=== PATIENT | female | born 1985 | race Hispanic/Latino ===

== ENCOUNTER 2018-02-22 14:58 | Emergency (ER) | payer OTHER ==
[~2018-02-22] VITALS: Ht 157.5 cm; Wt 52.0 kg
[2018-02-22 15:47] LABS: INFLUENZA B NONE DETECTED (NONE DETECT)
[2018-02-22] MEDS ORDERED: AMOXICILLIN875 MG PO (16:28)
[2018-02-22] MEDS ORDERED: GENTAK0.32 OD (16:28)
[2018-02-22] MEDS ORDERED: TESSALON PERLE100 MG PO (16:28)
[2018-02-22 16:33] VITALS: BP 128/69
== END 2018-02-22 16:35 | disposition home or self-care (01) ==
LOC: ED 14:58
DX: J02.9 Acute pharyngitis, unspecified (principal); R50.9 Fever, unspecified; R05 Cough; R51 Headache; H10.31 Unspecified acute conjunctivitis, right eye; R21 Rash and other nonspecific skin eruption; R09.81 Nasal congestion

== ENCOUNTER 2018-05-19 14:53 | Outpatient (REF) | payer OTHER ==
[~2018-05-19 14:53] MED LIST: AMOXICILLIN875 MG PO; GENTAK0.32 OD; TESSALON PERLE100 MG PO
== END 2018-05-19 15:26 | disposition home or self-care (01) ==
LOC: INF 14:53
PROVIDERS: ATTEND Family Medicine
DX: Z45.2 Encounter for adjustment and management of vascular access device (principal)

== ENCOUNTER 2020-04-03 16:00 | Emergency (ER) | payer OTHER ==
[~2020-04-03] VITALS: Ht 157.5 cm; Wt 55.0 kg
[2020-04-03] MEDS ORDERED: MYCOPHENOLIC A360 MG PO (17:10)
[2020-04-03] MEDS ORDERED: MONTELUKAST SOD10 MG PO (17:11)
[2020-04-03] MEDS ORDERED: IPRATROPIU0.5 MG/3 M IN (17:11)
[2020-04-03] MEDS ORDERED: AZITHROMYCIN1 GM PO (17:12)
[2020-04-03] MEDS ORDERED: CRYSELLE-2828 TABS PO (17:13)
[2020-04-03 17:14] LABS: IMMATURE GRANULOCYTES 0.5 % (0.0-5.0); MEAN CORPUSCULAR HGB 31.6 pG CALC (26.0-32.0); NEUT# 6.3 thou/uL (2.00-7.15); RED BLOOD COUNT 4.27 mill/uL (4.20-5.60); RED CELL DISTRI WIDTH 16.2 % (11.5-15.5)
[2020-04-03] MEDS ORDERED: MUPIROCIN21 TOP (17:14)
[2020-04-03] MEDS ORDERED: ALLERGY RELIEF 25 MG PO (17:14)
[2020-04-03] MEDS ORDERED: PREDNISONE20 MG PO (17:15)
[2020-04-03 17:22] LABS: HEMATOCRIT 40.9 % (37.0-47.0); HEMOGLOBIN 13.5 g/dl (12.0-16.0); MEAN CELL VOLUME 95.8 fL CALC (80.0-100.0)
[2020-04-03 17:31] LABS: ALKALINE PHOSPHATASE 59 u/l (38-126); ANION GAP 11 (6-22 (CALC)); BUN 14 mg/dL (7-17); BUN/CREATININE RATIO 15 (12-20 (CALC)); CARBON DIOXIDE 27 mmol/l (22-30); CHLORIDE 105 mmol/l (95-108); GFR > 60 ML/MIN (>=60 (CALC)); GFR FOR AFR.AMER. > 60 ML/MIN (>=60 (CALC)); POTASSIUM 3.7 mmol/l (3.5-5.1); SGOT/AST 23 u/l (14-36); SODIUM 139 mmol/l (137-146); TOTAL PROTEIN 6.5 g/dL (6.3-8.2)
[2020-04-03 17:37] LABS: BILIRUBIN, TOTAL 0.4 mg/dL (0.0-1.4)
[2020-04-03] MEDS ORDERED: OMNI-PAC300 MG PO (18:08)
[2020-04-03] MEDS ORDERED: BACTRIM DS1 TAB PO (18:08)
[2020-04-03 18:38] VITALS: BP 139/92
== END 2020-04-03 19:08 | disposition home or self-care (01) ==
LOC: ED 16:00
PROVIDERS: Family Medicine
DX: L03.312 Cellulitis of back [any part except buttock and flank] (principal); M31.30 Wegener's granulomatosis without renal involvement; B96.89 Other specified bacterial agents as the cause of diseases classified elsewhere